=== PATIENT | male | born 1985 | race Caucasian/White ===

== ENCOUNTER 2017-01-24 23:21 | Emergency (ER) | payer BC ==
[~2017-01-24] VITALS: Ht 208.3 cm; Wt 72.6 kg
[~2017-01-24 23:21] MED LIST: NOHOMEMEDICATIONS
[2017-01-25] MEDS ORDERED: VIIBRYD40 MG PO (00:13)
[2017-01-25 00:18] LABS: ABSOLUTE NEUTROPHILS 7.2 thou/uL (1.4-8.2); BASOPHILS 0.4 % (0.0-2.0); HEMATOCRIT 43.4 % (42.0-52.0); HEMOGLOBIN 14.8 gm/dL (14.0-18.0); LYMPHOCYTES 20.6 % (24.0-44.0); MCH 30.6 pg (26.0-34.0); MONOCYTES 6.8 % (1.0-8.0); PLATELET COUNT 234 thou/uL (150-400); POLYS 71.2 % (36.0-66.0); RBC 4.83 mil/uL (4.50-6.00); RDW 12.8 % (10.5-14.5); WBC 10.1 thou/uL (4.0-11.0)
[2017-01-25 00:20] LABS: MANUAL DIFF NO
[2017-01-25 00:34] LABS: ALBUMIN 4.7 g/dL (3.4-5.0); CALCIUM 9.7 mg/dL (8.5-10.1); TOTAL BILIRUBIN 0.3 mg/dL (<0.1-1.0); TOTAL PROTEIN 8.2 g/dL (6.4-8.2)
[2017-01-25 00:55] LABS: POTASSIUM 3.6 mmol/L (3.5-5.1)
[2017-01-25] MEDS ORDERED: TRAMADOL 50 MG50 MG PO (00:57)
[2017-01-25] MEDS ORDERED: ZOFRAN ODT4 MG DISSOLVE (00:57)
[2017-01-25 01:04] LABS: URINE BILIRUBIN NEGATIVE (Negative); URINE BLOOD NEGATIVE (Negative); URINE COLOR YELLOW; URINE GLUCOSE-RANDOM* NEGATIVE (Negative); URINE KETONES NEGATIVE (Negative); URINE LEUKOCYTES-REFLEX NEGATIVE (Negative); URINE PROTEIN (DIPSTICK) TRACE (Negative); URINE SPECIFIC GRAVITY 1.025 (1.003-1.035); URINE UROBILINOGEN 0.2 E.U./dl (0.2-1.0)
[2017-01-25 04:30] VITALS: BP 123/76
== END 2017-01-25 00:59 | disposition home or self-care (01) ==
LOC: ER 23:21
PROVIDERS: Emergency Medicine
DX: R10.10 Upper abdominal pain, unspecified (principal); R19.7 Diarrhea, unspecified; R11.10 Vomiting, unspecified; F17.210 Nicotine dependence, cigarettes, uncomplicated; F10.99 Alcohol use, unspecified with unspecified alcohol-induced disorder